=== PATIENT | female | born 1995 | race Caucasian/White ===

== ENCOUNTER 2021-01-25 14:42 | Emergency (ER) | payer OTHER, SELFPAY ==
--- NOTE | ~2021-01-25 | US_ITS ---
EXAMINATION: US VENOUS ULTRASOUND WITH DOPPLER LOWER EXTREMITY, RIGHT CLINICAL INFORMATION: Right lower extremity pain COMPARISON: None TECHNIQUE: Ultrasound of the deep veins is performed from the hip to the calf with compression sonography and color and pulse Doppler assessment. Spectral analysis with color-flow imaging is performed. FINDINGS: There is normal venous compression and respiratory variation and augmented flow. The visualized common femoral vein, superficial femoral vein, profunda femoral vein, popliteal vein, and the trifurcation region shows no evidence of deep venous thrombosis. There is no significant popliteal fossa cyst. If the patient's symptoms persist, followup ultrasound in 5 days 7 days might be of value to exclude proximal propagation from a non-visualized calf vein. US/US venous duplex LE RT IMPRESSION: No DVT demonstrated in the right lower extremity.
[2021-01-25 15:33] VITALS: BP 134/94; PULSE 122; RESP 18; TEMP 36.9; O2SAT 97; BMI 55.9
[2021-01-25 17:32] VITALS: BP 150/95; PULSE 128; RESP 18; TEMP 36.5; O2SAT 99
[2021-01-25] MEDS: Acetaminophen 325 MG TABLET 650 MG PO (19:14)
--- NOTE | 2021-01-25 20:00 | ED_ITS ---
HPI - Extremity Problem General Chief complaint: Extremity Problem Stated complaint: leg pain Time Seen by Provider: 01/25/21 17:40 Source: patient Mode of arrival: ambulatory Limitations: no limitations History of Present Illness HPI Narrative: States she has been inactive for the past several weeks to a month started being more active recently feeling pain in the right calf called primary care doctor advised to go to emergency room for rule out DVT. She otherwise denies any leg swelling states she is anxious when she heard this should cover possible DVT. She otherwise denies any rash or swelling. She is o n control. She does have history of morbid obesity. MD Complaint: extremity pain Pain Consistency: constant Location: right Related Data Allergies Allergy/AdvReac Type Severity Reaction Status Date / Time No Known Allergies Allergy Unverified 01/16/20 16:29 [No Known Allergies*] Review of Systems Review of Systems: Constitutional: No Weight loss, No Fever, No Chills, No Night Sweats, No Fatigue, No Malaise ENT/Mouth: No Hearing loss, No Ear Pain, No Nasal Congestion, No Sinus Pain, No Hoarseness, No sore throat, No Rhinorrhea, No Swallowing Difficulty Eyes: No Eye Pain, No Swelling, No Redness, No Foreign Body, No Discharge, No Vision Changes Cardiovascular: No Chest Pain, No SOB, No Dyspnea on Exertion, No Orthopnea, No Edema, No Palpitations Respiratory: No Cough, No Sputum, No Wheezing, No Smoke Exposure, No Dyspnea Gastrointestinal: No Nausea, No Vomiting, No Diarrhea, No Constipation, No abdominal Pain, No Hematochezia, No Melena Genitourinary: no irregular bleeding, No Dysuria, No Urinary Frequency, No Hematuria, No Urinary Incontinence, No Urgency, No Flank Pain, No Urinary Flow Changes, No Hesitancy Musculoskeletal: No joint pain, No Myalgias, No Joint Swelling Skin: No Skin Lesions, No rash Neuro: No Weakness, No Numbness, No Paresthesias, No Loss of Consciousness, No Dizziness, No Headache Psych: No Anxiety/Panic, No Depression, No SI/HI/AH/VH, No Social Issues, Heme/Lymph: No Bruising, No Bleeding,No Lymphadenopathy Endocrine: No Polyuria, No Polydipsia, No Temperature Intolerance Yes all other systems are reviewed and are negative [facility] Social History Social History Advance Directives: No Advance Directives Information Provided: No Patient : No Physical Exam Vital Signs: Vital Signs: Last Vital Signs Temp 97.7 F 01/25/21 17:32 Pulse 128 H 01/25/21 17:32 Resp 18 01/25/21 17:32 BP 150/95 H 01/25/21 17:32 Pulse Ox 99 01/25/21 17:32 Body Mass Index 55.9 Const: General: cooperative and healthy appearing; No acute distress or intoxicated appearing Nutritional Appearance: average body habitus Orientation/consciousness: patient oriented x3 HENMT: Head: Yes normal to inspection Ears: hearing grossly normal bilaterally Eyes: General: appearance normal, both eyes and all related structures Visual Sanders: normal visual sanders by confrontation Neck: Neck: Yes normal visual inspection, No positive Brudzinski's sign, No positive Kernig's sign and No tender Thyroid: Thyroid normal Chest: Chest palpation & inspection: normal inspection of the chest Resp: Effort & Inspection: normal respiratory effort Cardio: Jugular venous distension: no JVD GI: Inspection: Yes normal to inspection Percussion: Yes normal to percussion Auscultation: normal bowel sounds : General: Yes no CVA tenderness Back/Spine/Pelvis: Back: no CVA tenderness Skin: General skin exam: no rashes or lesions noted Neuro: General: patient oriented x3 Extrem: General: Yes normal to inspection Right upper extremity: normal to inspection and full ROM Left upper extremity: normal to inspection Right lower extremity: normal to inspection and no joint enlargement Left lower extremity: normal to inspection and no joint enlargement Course Course Course Narrative: Slice of motion pain to the mid calf of the right leg only with certain movements otherwise Achilles intact, negative Homans however she does have history of obesity and is on control thus venous ultrasound was done rule out DVT this was negative. Neurovascular intact. No other signs of injury. Discharge Plan Discharge Clinical Impression: Leg strain Patient Disposition: Home, Self-Care Instructions: Leg Pain (ED) Referrals: Latonia Contreras MD [Primary Care Provider] - 1 week Discharge Date/Time: 01/25/21 20:05
== END 2021-01-25 20:05 | disposition home or self-care (01) ==
PROVIDERS: Emergency Provider Emergency Medicine; PCP Internal Medicine
DX: S86.911A Strain of unspecified muscle(s) and tendon(s) at lower leg level, right leg, initial encounter (principal); M79.661 Pain in right lower leg; R60.0 Localized edema; X58.XXXA Exposure to other specified factors, initial encounter; Y93.9 Activity, unspecified; Y92.9 Unspecified place or not applicable; Y99.9 Unspecified external cause status
CPT/HCPCS: 93971; 99284

== ENCOUNTER 2021-09-15 20:49 | Emergency (ER) | payer OTHER, SELFPAY ==
[2021-09-15 20:53] VITALS: BP 137/98; PULSE 110; RESP 18; TEMP 36.4; O2SAT 99; BMI 46.0
== END 2021-09-15 22:54 | disposition left against medical advice (07) ==
PROVIDERS: Emergency Provider Emergency Medicine
DX: R10.9 Unspecified abdominal pain (principal)
CPT/HCPCS: 99281

== ENCOUNTER 2021-09-20 09:39 | Outpatient (REF) | payer OTHER, SELFPAY ==
--- NOTE | ~2021-09-20 | US_ITS ---
EXAMINATION: US ABDOMEN COMPLETE CLINICAL INFORMATION: Right upper quadrant pain. COMPARISON: None TECHNIQUE: Real-time imaging of the abdominal viscera. FINDINGS: PANCREAS: Normal. ABDOMINAL AORTA: The proximal, mid, and distal segments are normal in caliber. INFERIOR VENA CAVA: Visualized portions are normal. LIVER: The liver is normal in size. The liver contour is normal. Parenchymal echogenicity is increased and heterogeneous. No focal hepatic lesion. There is no intrahepatic biliary duct dilatation seen. GALLBLADDER: Normal. The gallbladder is physiologically distended without evidence of stones, sludge, polyps, wall thickening or pericholecystic fluid. COMMON BILE DUCT: Normal in caliber measuring 0.24 cm in diameter. RIGHT KIDNEY: Normal. No hydronephrosis. No renal calculi or focal parenchymal lesions. The kidney measures 10.6 cm in maximum dimension. LEFT KIDNEY: Normal. No hydronephrosis. No renal calculi or focal parenchymal lesions. The kidney measures 11.2 cm in maximum dimension. SPLEEN: Normal. The spleen measures 11.5 cm in maximum dimension. FREE FLUID: None. US/US abdomen complete IMPRESSION: Heterogeneous echogenic liver without any focal lesions.. Rest of the abdominal ultrasound is unremarkable.
== END 2021-09-20 09:40 | disposition home or self-care (01) ==
LOC: HO.US 09:39
PROVIDERS: Visit Provider Internal Medicine
DX: R10.11 Right upper quadrant pain (principal)
CPT/HCPCS: 76700

== ENCOUNTER 2022-03-16 16:32 | Emergency (ER) | payer OTHER, SELFPAY ==
--- NOTE | ~2022-03-16 | XR_ITS ---
EXAMINATION: XR CHEST CLINICAL INFORMATION: Chest pain COMPARISON: Chest x-ray 09/11/2006 TECHNIQUE: Frontal view of the chest was obtained. FINDINGS: The lungs are clear. No airspace consolidation, pleural effusion, or pneumothorax. The cardiomediastinal silhouette is within normal limits. No acute osseous injury. XR/XR chest 1V IMPRESSION: No acute pulmonary process.
[2022-03-16 16:36] VITALS: BP 144/98; PULSE 107; RESP 18; TEMP 36.6; O2SAT 109; BMI 53.5
--- NOTE | 2022-03-16 16:42 | ECG_ITS ---
Test Reason : CHEST PAIN Blood Pressure : / mmHG Vent. Rate : 112 BPM Atrial Rate : 112 BPM P-R Int : 148 ms QRS Dur : 070 ms QT Int : 342 ms P-R-T Axes : 048 045 036 degrees QTc Int : 466 ms Sinus tachycardia Otherwise normal ECG No previous ECGs available Referred By: Pravin Uriarte Electronically Signed By:JOEY KENNEDY MD
--- NOTE | 2022-03-16 16:44 | ED.ANXIETY ---
HPI - Anxiety General Chief Complaint: Anxiety <Pravin Uriarte MD - Last Filed: 03/16/22 16:45> Stated Complaint: Chest Pain <Pravin Uriarte MD - Last Filed: 03/16/22 16:45> Time Seen by Provider: 03/16/22 16:51 <Pravin Uriarte MD - Last Filed: 03/16/22 16:45> Source: patient <TAMMI Luque - Last Filed: 03/16/22 21:09> Mode of arrival: ambulatory <TAMMI Luque - Last Filed: 03/16/22 21:09> Limitations: no limitations <TAMMI Luque - Last Filed: 03/16/22 21:09> History of Present Illness HPI narrative: 26 yold female with pmh of anxiety, psoriasis, presents to the ED for 2 weeks of chest chest pain. patient states chest pain started once her boyfriend told her he was leaving to go away on vacation. She states also financial stressors at home. patient denies any leg swelling, calf pain, fever, chills, pleurisy, recent long travel, or recent surgery. <TAMMI Luque - Last Filed: 03/16/22 21:09> Related Data Home Medications: Previous Rx's Medication Instructions Recorded cephalexin 500 mg tablet 500 mg PO QID 7 days #28 tabs 03/16/22 <Pravin Uriarte MD - Last Filed: 03/16/22 16:45> Allergies/Adverse Reactions: Allergies Allergy/AdvReac Type Severity Reaction Status Date / Time No Known Allergies Allergy Unverified 01/16/20 16:29 [No Known Allergies*] <Pravin Uriarte MD - Last Filed: 03/16/22 16:45> Review of Systems Review of Systems: CHest pain, palpitations, anxiety <TAMMI Luque - Last Filed: 03/16/22 21:09> Yes all other systems are reviewed and are negative <TAMMI Luque - Last Filed: 03/16/22 21:09> PMFSH Social History Social History: Social History Advance Directives: No Advance Directives Information Provided: No <Pravin Uriarte MD - Last Filed: 03/16/22 16:45> Physical Exam Vital Signs: Vital Signs: Last Vital Signs Temp 97.8 F 03/16/22 16:36 Pulse 107 H 03/16/22 16:36 Resp 18 03/16/22 16:36 BP 144/98 H 03/16/22 16:36 Pulse Ox 109 H 03/16/22 16:36 O2 Del Method 03/16/22 16:36 BMI result Body Mass Index 53.5 <Pravin Uriarte MD - Last Filed: 03/16/22 16:45> Vital Signs: Last Vital Signs Temp 97.8 F 03/16/22 16:36 Pulse 107 H 03/16/22 16:36 Resp 18 03/16/22 16:36 BP 144/98 H 03/16/22 16:36 Pulse Ox 109 H 03/16/22 16:36 O2 Del Method 03/16/22 16:36 BMI result Body Mass Index 53.5 <TAMMI Luque - Last Filed: 03/16/22 21:09> Const: General: cooperative, healthy appearing, comfortable, no acute distress, well developed, alert, awake and Physically active <TAMMI Luque - Last Filed: 03/16/22 21:09> Orientation/consciousness: oriented to place, oriented to time and patient oriented x3 <TAMMI Luque - Last Filed: 03/16/22 21:09> HEENT: Head: Yes normal to inspection, Yes No palpable skull fracture present, Yes normocephalic, Yes atraumatic and No abrasion <TAMMI Luque - Last Filed: 03/16/22 21:09> Eyes: General: appearance normal, both eyes and all related structures <TAMMI Luque - Last Filed: 03/16/22 21:09> Neck: Neck: Yes normal visual inspection, Yes full ROM, Yes no lymphadenopathy, Yes no meningeal signs, Yes trachea midline, Yes supple, No anterior neck swelling and No tender <TAMMI Luque Last Filed: 03/16/22 21:09> Chest: Chest palpation & inspection: normal inspection of the chest and normal palpation of entire chest wall <TAMMI Luque Last Filed: 03/16/22 21:09> Resp: Effort & Inspection: normal respiratory effort and able to speak in complete sentences <TAMMI Luque Last Filed: 03/16/22 21:09> Cardio: Jugular venous distension: no JVD <TAMMI Luque Last Filed: 03/16/22 21:09> Heart sounds: S1 normal heart sound present and S2 normal heart sound present <TAMMI Luque Last Filed: 03/16/22 21:09> GI: Inspection: Yes normal to inspection and No abdominal wall ecchymosis <TAMMI Luque Last Filed: 03/16/22 21:09> Palpation (GI): Soft to palpation, not firm, nontender, no guarding and not rigid <TAMMI Luque Last Filed: 03/16/22 21:09> : General: No CVA tenderness and Yes no CVA tenderness <TAMMI Luque Last Filed: 03/16/22 21:09> Back/Spine/Pelvis: Back: no CVA tenderness, No CVA tenderness and No back tenderness <TAMMI Luque Last Filed: 03/16/22 21:09> Skin: Other: Psoraisis on skin <TAMMI Luque Last Filed: 03/16/22 21:09> Neuro: Other: negative for any neuro deficits. <TAMMI Luque Last Filed: 03/16/22 21:09> General: oriented to place, oriented to time, patient oriented x3, gait normal, tone normal, moves all extremities, Normal light touch and pain sensation, no meningeal signs, no focal motor deficits and CN's II-XI intact bilaterally <TAMMI Luque Last Filed: 03/16/22 21:09> Extrem: Other: Bilateral lower extremities negative for swelling, pitting edema, or calf tenderness <TAMMI Luque Last Filed: 03/16/22 21:09> General: Yes normal to inspection and Yes full ROM <TAMMI Luque Last Filed: 03/16/22 21:09> Psych: Appearance: grossly normal, well kempt and not disheveled <TAMMI Luque Last Filed: 03/16/22 21:09> Course Course Course Narrative: Provider in triage ordred labs and EKG. will follow. patient is well-appearing. Patient appears anxious <TAMMI Luque - Last Filed: 03/16/22 21:09> Reevaluation(s) Reevaluation #1: 26-year-old female history of anxiety presented with chest pain for the past 3 days, patient's history of severe anxiety and depression no SI or HI, chest pain is localized to the mid chest with no radiation described as constant for 3 days dull aching pain, no SOB, no relieving factor, no aggravating factor. No recent travel, no lower extremity swelling or tenderness, no history of PE or DVT. <Pravin Uriarte MD - Last Filed: 03/16/22 16:45> Time: 16:44 <Pravin Uriarte MD - Last Filed: 03/16/22 16:45> Reevaluation #2: Patient well appearing and stable during ED visit. EKG sinus tach. Troponin negative. TSH negative. D-dimer negative. Perc score 2. Chest x-ray negative pneumonia. Heart Score zero. Patient has good follow-up with therapist for her anxiety. Most likely atypical chest pain versus anxiety. UA shows UTI <TAMMI Luque - Last Filed: 03/16/22 21:09> Time: 18:23 <TAMMI Luque - Last Filed: 03/16/22 21:09> MDM - Anxiety MDM Narrative Medical decision making narrative: Atypical chest <TAMMI Luque - Last Filed: 03/16/22 21:09> Lab Data Result diagrams: : 03/16/22 17:23 03/16/22 17:23 <Pravin Uriarte MD - Last Filed: 03/16/22 16:45> Labs: Lab Results 03/16/22 03/16/22 03/16/22 Range/Units 17:23 17:23 17:23 WBC 7.4 (4.8-10.8) X10*3/uL RBC 5.34 (4.20-5.50) X10*6/uL Hgb 15.1 (12.0-16.0) g/dl Hct 44.0 (37.0-47.0) % MCV 82.4 (80.0-98.0) fL MCH 28.3 (27.0-33.0) pg MCHC 34.3 (31.0-35.0) g/dl RDW 12.3 (11.0-16.0) % Plt Count 276 (160-400) X10*3/uL MPV 10.5 (9.4-12.3) fL Immature Gran % (Auto) 0.3 (0.0-0.4) % Neut % (Auto) 67.4 (45-73) % Lymph % (Auto) 26.0 (20-40) % [place] % (Auto) 5.0 (2-11) % Eos % (Auto) 0.8 (0-4) % Baso % (Auto) 0.5 (0-2) % Lymph # (Auto) 1.9 (1.2-4.9) X10*3/uL [place] # (Auto) 0.4 (0.1-1.2) X10*3/uL Eos # (Auto) 0.1 (0.0-0.4) X10*3/uL Baso # (Auto) 0.0 (0.0-0.2) X10*3/uL Abs Immat Gran (auto) 0.02 (0.00-0.03) X10*3/uL Absolute Neuts (auto) 5.0 (2.0-8.3) x10*3/uL Absolute Nucleated RBC 0.000 (0.0-0.012) X10*3/uL Nucleated RBC % (auto) 0.0 (0.0-0.2) /100WBC PT (10.0-13.1) SEC INR (0.9-1.1) APTT (26.0-36.4) SEC D-Dimer High Sensitivty 178 NG/ML Sodium 139 (135-145) mmol/L Potassium 3.8 (3.3-5.1) mmol/L Chloride 104 (96-108) mmol/L Carbon Dioxide 23 (22-29) mmol/L Anion Gap 16 (12-20) BUN 12 (9-16) mg/dL Creatinine 0.79 (0.5-1.4) mg/dL Estim Creat Clear Calc 127.2 Estimated GFR > 60 Random Glucose 90 (60-115) mg/dL Calcium 9.4 (8.4-10.2) mg/dL Total Bilirubin 0.5 (0.0-1.0) mg/dL Direct Bilirubin 0.2 (0.0-0.5) mg/dL AST 22 (5-31) U/L ALT 26 (0-31) U/L Alkaline Phosphatase 80 (39-117) U/L Troponin I High Sens (<3.5-17.0) ng/L Total Protein 7.8 (6.5-8.0) g/dL Albumin 4.4 (3.5-5.0) g/dL Lipase 31 (8-78) U/L TSH (0.32-4.0) uIU/mL Urine Color Urine Appearance Urine pH (5.0-9.0) Ur Specific [place] (1.005-1.025) Urine Protein (Neg-Trace) mg/dL Urine Glucose (UA) (Negative) mg/dL Urine Ketones (Negative) mg/dL Urine Blood (Negative) Urine Nitrite (Negative) Ur Leukocyte Esterase (Negative) Urine RBC (0-2) /HPF Urine WBC (0-5) /HPF Ur Squamous Epith Cells (0-2) /HPF Urine Bacteria (None Seen) Hyaline Casts (0-2) /LPF Urine Test (NEGATIVE) 03/16/22 03/16/22 03/16/22 Range/Units 17:23 17:23 17:23 WBC (4.8-10.8) X10*3/uL RBC (4.20-5.50) X10*6/uL Hgb (12.0-16.0) g/dl Hct (37.0-47.0) % MCV (80.0-98.0) fL MCH (27.0-33.0) pg MCHC (31.0-35.0) g/dl RDW (11.0-16.0) % Plt Count (160-400) X10*3/uL MPV (9.4-12.3) fL Immature Gran % (Auto) (0.0-0.4) % Neut % (Auto) (45-73) % Lymph % (Auto) (20-40) % [place] % (Auto) (2-11) % Eos % (Auto) (0-4) % Baso % (Auto) (0-2) % Lymph # (Auto) (1.2-4.9) X10*3/uL [place] # (Auto) (0.1-1.2) X10*3/uL Eos # (Auto) (0.0-0.4) X10*3/uL Baso # (Auto) (0.0-0.2) X10*3/uL Abs Immat Gran (auto) (0.00-0.03) X10*3/uL Absolute Neuts (auto) (2.0-8.3) x10*3/uL Absolute Nucleated RBC (0.0-0.012) X10*3/uL Nucleated RBC % (auto) (0.0-0.2) /100WBC PT 11.9 (10.0-13.1) SEC INR 1.0 (0.9-1.1) APTT 33.2 (26.0-36.4) SEC D-Dimer High Sensitivty NG/ML Sodium (135-145) mmol/L Potassium (3.3-5.1) mmol/L Chloride (96-108) mmol/L Carbon Dioxide (22-29) mmol/L Anion Gap (12-20) BUN (9-16) mg/dL Creatinine (0.5-1.4) mg/dL Estim Creat Clear Calc Estimated GFR Random Glucose (60-115) mg/dL Calcium (8.4-10.2) mg/dL Total Bilirubin (0.0-1.0) mg/dL Direct Bilirubin (0.0-0.5) mg/dL AST (5-31) U/L ALT (0-31) U/L Alkaline Phosphatase (39-117) U/L Troponin I High Sens < 3.5 (<3.5-17.0) ng/L Total Protein (6.5-8.0) g/dL Albumin (3.5-5.0) g/dL Lipase (8-78) U/L TSH (0.32-4.0) uIU/mL Urine Color Yellow Urine Appearance Clear Urine pH 5.5 (5.0-9.0) Ur Specific [place] 1.020 (1.005-1.025) Urine Protein Negative (Neg-Trace) mg/dL Urine Glucose (UA) Negative (Negative) mg/dL Urine Ketones Trace (Negative) mg/dL Urine Blood Trace H (Negative) Urine Nitrite Negative (Negative) Ur Leukocyte Esterase Moderate (2+) H (Negative) Urine RBC 0-2 (0-2) /HPF Urine WBC 11-20 H (0-5) /HPF Ur Squamous Epith Cells 6-10 (0-2) /HPF Urine Bacteria Trace (None Seen) Hyaline Casts 0-2 (0-2) /LPF Urine Test (NEGATIVE) 03/16/22 03/16/22 Range/Units 17:23 17:23 WBC (4.8-10.8) X10*3/uL RBC (4.20-5.50) X10*6/uL Hgb (12.0-16.0) g/dl Hct (37.0-47.0) % MCV (80.0-98.0) fL MCH (27.0-33.0) pg MCHC (31.0-35.0) g/dl RDW (11.0-16.0) % Plt Count (160-400) X10*3/uL MPV (9.4-12.3) fL Immature Gran % (Auto) (0.0-0.4) % Neut % (Auto) (45-73) % Lymph % (Auto) (20-40) % [place] % (Auto) (2-11) % Eos % (Auto) (0-4) % Baso % (Auto) (0-2) % Lymph # (Auto) (1.2-4.9) X10*3/uL [place] # (Auto) (0.1-1.2) X10*3/uL Eos # (Auto) (0.0-0.4) X10*3/uL Baso # (Auto) (0.0-0.2) X10*3/uL Abs Immat Gran (auto) (0.00-0.03) X10*3/uL Absolute Neuts (auto) (2.0-8.3) x10*3/uL Absolute Nucleated RBC (0.0-0.012) X10*3/uL Nucleated RBC % (auto) (0.0-0.2) /100WBC PT (10.0-13.1) SEC INR (0.9-1.1) APTT (26.0-36.4) SEC D-Dimer High Sensitivty NG/ML Sodium (135-145) mmol/L Potassium (3.3-5.1) mmol/L Chloride (96-108) mmol/L Carbon Dioxide (22-29) mmol/L Anion Gap (12-20) BUN (9-16) mg/dL Creatinine (0.5-1.4) mg/dL Estim Creat Clear Calc Estimated GFR Random Glucose (60-115) mg/dL Calcium (8.4-10.2) mg/dL Total Bilirubin (0.0-1.0) mg/dL Direct Bilirubin (0.0-0.5) mg/dL AST (5-31) U/L ALT (0-31) U/L Alkaline Phosphatase (39-117) U/L Troponin I High Sens (<3.5-17.0) ng/L Total Protein (6.5-8.0) g/dL Albumin (3.5-5.0) g/dL Lipase (8-78) U/L TSH 2.43 (0.32-4.0) uIU/mL Urine Color Urine Appearance Urine pH (5.0-9.0) Ur Specific [place] (1.005-1.025) Urine Protein (Neg-Trace) mg/dL Urine Glucose (UA) (Negative) mg/dL Urine Ketones (Negative) mg/dL Urine Blood (Negative) Urine Nitrite (Negative) Ur Leukocyte Esterase (Negative) Urine RBC (0-2) /HPF Urine WBC (0-5) /HPF Ur Squamous Epith Cells (0-2) /HPF Urine Bacteria (None Seen) Hyaline Casts (0-2) /LPF Urine Test NEGATIVE (NEGATIVE) <Pravin Uriarte MD - Last Filed: 03/16/22 16:45> Lab Results 03/16/22 03/16/22 03/16/22 Range/Units 17:23 17:23 17:23 WBC 7.4 (4.8-10.8) X10*3/uL RBC 5.34 (4.20-5.50) X10*6/uL Hgb 15.1 (12.0-16.0) g/dl Hct 44.0 (37.0-47.0) % MCV 82.4 (80.0-98.0) fL MCH 28.3 (27.0-33.0) pg MCHC 34.3 (31.0-35.0) g/dl RDW 12.3 (11.0-16.0) % Plt Count 276 (160-400) X10*3/uL MPV 10.5 (9.4-12.3) fL Immature Gran % (Auto) 0.3 (0.0-0.4) % Neut % (Auto) 67.4 (45-73) % Lymph % (Auto) 26.0 (20-40) % [place] % (Auto) 5.0 (2-11) % Eos % (Auto) 0.8 (0-4) % Baso % (Auto) 0.5 (0-2) % Lymph # (Auto) 1.9 (1.2-4.9) X10*3/uL [place] # (Auto) 0.4 (0.1-1.2) X10*3/uL Eos # (Auto) 0.1 (0.0-0.4) X10*3/uL Baso # (Auto) 0.0 (0.0-0.2) X10*3/uL Abs Immat Gran (auto) 0.02 (0.00-0.03) X10*3/uL Absolute Neuts (auto) 5.0 (2.0-8.3) x10*3/uL Absolute Nucleated RBC 0.000 (0.0-0.012) X10*3/uL Nucleated RBC % (auto) 0.0 (0.0-0.2) /100WBC PT (10.0-13.1) SEC INR (0.9-1.1) APTT (26.0-36.4) SEC D-Dimer High Sensitivty 178 NG/ML Sodium 139 (135-145) mmol/L Potassium 3.8 (3.3-5.1) mmol/L Chloride 104 (96-108) mmol/L Carbon Dioxide 23 (22-29) mmol/L Anion Gap 16 (12-20) BUN 12 (9-16) mg/dL Creatinine 0.79 (0.5-1.4) mg/dL Estim Creat Clear Calc 127.2 Estimated GFR > 60 Random Glucose 90 (60-115) mg/dL Calcium 9.4 (8.4-10.2) mg/dL Total Bilirubin 0.5 (0.0-1.0) mg/dL Direct Bilirubin 0.2 (0.0-0.5) mg/dL AST 22 (5-31) U/L ALT 26 (0-31) U/L Alkaline Phosphatase 80 (39-117) U/L Troponin I High Sens (<3.5-17.0) ng/L Total Protein 7.8 (6.5-8.0) g/dL Albumin 4.4 (3.5-5.0) g/dL Lipase 31 (8-78) U/L TSH (0.32-4.0) uIU/mL Urine Color Urine Appearance Urine pH (5.0-9.0) Ur Specific [place] (1.005-1.025) Urine Protein (Neg-Trace) mg/dL Urine Glucose (UA) (Negative) mg/dL Urine Ketones (Negative) mg/dL Urine Blood (Negative) Urine Nitrite (Negative) Ur Leukocyte Esterase (Negative) Urine RBC (0-2) /HPF Urine WBC (0-5) /HPF Ur Squamous Epith Cells (0-2) /HPF Urine Bacteria (None Seen) Hyaline Casts (0-2) /LPF Urine Test (NEGATIVE) 03/16/22 03/16/22 03/16/22 Range/Units 17:23 17:23 17:23 WBC (4.8-10.8) X10*3/uL RBC (4.20-5.50) X10*6/uL Hgb (12.0-16.0) g/dl Hct (37.0-47.0) % MCV (80.0-98.0) fL MCH (27.0-33.0) pg MCHC (31.0-35.0) g/dl RDW (11.0-16.0) % Plt Count (160-400) X10*3/uL MPV (9.4-12.3) fL Immature Gran % (Auto) (0.0-0.4) % Neut % (Auto) (45-73) % Lymph % (Auto) (20-40) % [place] % (Auto) (2-11) % Eos % (Auto) (0-4) % Baso % (Auto) (0-2) % Lymph # (Auto) (1.2-4.9) X10*3/uL [place] # (Auto) (0.1-1.2) X10*3/uL Eos # (Auto) (0.0-0.4) X10*3/uL Baso # (Auto) (0.0-0.2) X10*3/uL Abs Immat Gran (auto) (0.00-0.03) X10*3/uL Absolute Neuts (auto) (2.0-8.3) x10*3/uL Absolute Nucleated RBC (0.0-0.012) X10*3/uL Nucleated RBC % (auto) (0.0-0.2) /100WBC PT 11.9 (10.0-13.1) SEC INR 1.0 (0.9-1.1) APTT 33.2 (26.0-36.4) SEC D-Dimer High Sensitivty NG/ML Sodium (135-145) mmol/L Potassium (3.3-5.1) mmol/L Chloride (96-108) mmol/L Carbon Dioxide (22-29) mmol/L Anion Gap (12-20) BUN (9-16) mg/dL Creatinine (0.5-1.4) mg/dL Estim Creat Clear Calc Estimated GFR Random Glucose (60-115) mg/dL Calcium (8.4-10.2) mg/dL Total Bilirubin (0.0-1.0) mg/dL Direct Bilirubin (0.0-0.5) mg/dL AST (5-31) U/L ALT (0-31) U/L Alkaline Phosphatase (39-117) U/L Troponin I High Sens < 3.5 (<3.5-17.0) ng/L Total Protein (6.5-8.0) g/dL Albumin (3.5-5.0) g/dL Lipase (8-78) U/L TSH (0.32-4.0) uIU/mL Urine Color Yellow Urine Appearance Clear Urine pH 5.5 (5.0-9.0) Ur Specific [place] 1.020 (1.005-1.025) Urine Protein Negative (Neg-Trace) mg/dL Urine Glucose (UA) Negative (Negative) mg/dL Urine Ketones Trace (Negative) mg/dL Urine Blood Trace H (Negative) Urine Nitrite Negative (Negative) Ur Leukocyte Esterase Moderate (2+) H (Negative) Urine RBC 0-2 (0-2) /HPF Urine WBC 11-20 H (0-5) /HPF Ur Squamous Epith Cells 6-10 (0-2) /HPF Urine Bacteria Trace (None Seen) Hyaline Casts 0-2 (0-2) /LPF Urine Test (NEGATIVE) 03/16/22 03/16/22 Range/Units 17:23 17:23 WBC (4.8-10.8) X10*3/uL RBC (4.20-5.50) X10*6/uL Hgb (12.0-16.0) g/dl Hct (37.0-47.0) % MCV (80.0-98.0) fL MCH (27.0-33.0) pg MCHC (31.0-35.0) g/dl RDW (11.0-16.0) % Plt Count (160-400) X10*3/uL MPV (9.4-12.3) fL Immature Gran % (Auto) (0.0-0.4) % Neut % (Auto) (45-73) % Lymph % (Auto) (20-40) % [place] % (Auto) (2-11) % Eos % (Auto) (0-4) % Baso % (Auto) (0-2) % Lymph # (Auto) (1.2-4.9) X10*3/uL [place] # (Auto) (0.1-1.2) X10*3/uL Eos # (Auto) (0.0-0.4) X10*3/uL Baso # (Auto) (0.0-0.2) X10*3/uL Abs Immat Gran (auto) (0.00-0.03) X10*3/uL Absolute Neuts (auto) (2.0-8.3) x10*3/uL Absolute Nucleated RBC (0.0-0.012) X10*3/uL Nucleated RBC % (auto) (0.0-0.2) /100WBC PT (10.0-13.1) SEC INR (0.9-1.1) APTT (26.0-36.4) SEC D-Dimer High Sensitivty NG/ML Sodium (135-145) mmol/L Potassium (3.3-5.1) mmol/L Chloride (96-108) mmol/L Carbon Dioxide (22-29) mmol/L Anion Gap (12-20) BUN (9-16) mg/dL Creatinine (0.5-1.4) mg/dL Estim Creat Clear Calc Estimated GFR Random Glucose (60-115) mg/dL Calcium (8.4-10.2) mg/dL Total Bilirubin (0.0-1.0) mg/dL Direct Bilirubin (0.0-0.5) mg/dL AST (5-31) U/L ALT (0-31) U/L Alkaline Phosphatase (39-117) U/L Troponin I High Sens (<3.5-17.0) ng/L Total Protein (6.5-8.0) g/dL Albumin (3.5-5.0) g/dL Lipase (8-78) U/L TSH 2.43 (0.32-4.0) uIU/mL Urine Color Urine Appearance Urine pH (5.0-9.0) Ur Specific [place] (1.005-1.025) Urine Protein (Neg-Trace) mg/dL Urine Glucose (UA) (Negative) mg/dL Urine Ketones (Negative) mg/dL Urine Blood (Negative) Urine Nitrite (Negative) Ur Leukocyte Esterase (Negative) Urine RBC (0-2) /HPF Urine WBC (0-5) /HPF Ur Squamous Epith Cells (0-2) /HPF Urine Bacteria (None Seen) Hyaline Casts (0-2) /LPF Urine Test NEGATIVE (NEGATIVE) <TAMMI Luque - Last Filed: 03/16/22 21:09> ECG Data Interpretation: Sinus tachycardia. Ventricular rate 112. Pr interval 148. QRS 70. QTC 466. Negative STEMI <TAMMI Luque - Last Filed: 03/16/22 21:09> Discharge Plan Discharge Clinical Impression: Atypical chest pain, UTI (urinary tract infection) <Pravin Uriarte MD - Last Filed: 03/16/22 16:45> Patient Disposition: Home, Self-Care <Pravin Uriarte MD - Last Filed: 03/16/22 16:45> Instructions: Chest Pain (DC), Urinary Tract Infection in Women (ED) <Pravin Uriarte MD - Last Filed: 03/16/22 16:45> Additional Instructions: Your blood work, EKG, and chest x-ray came back negative for signs of heart attack, risk of PE, or pneumonia. Please follow-up with your primary care provider. Return to the ED immediately for any worsening chest pain, leg swelling, calf pain, coughing up blood, fever, chills, chest pain on inspiration, flan pain, dysuria, hematuria, abdominal pain, nausea, vomitting or any other concerning symptoms. <Pravin Uriarte MD - Last Filed: 03/16/22 16:45> Prescriptions: New cephalexin 500 mg tablet 500 mg PO QID 7 Days Qty: 28 0RF <Pravin Uriarte MD - Last Filed: 03/16/22 16:45> Interventions: ED Discharge Assessment Last Done: 03/16/22 18:44 <Pravin Uriarte MD - Last Filed: 03/16/22 16:45> Discharge Date/Time: 03/16/22 18:45 <Pravin Uriarte MD - Last Filed: 03/16/22 16:45> Print Language: Czech <Pravin Uriarte MD - Last Filed: 03/16/22 16:45>
--- OUTSIDE RECORDS SUMMARY | 2022-03-16 17:07 | XMS_ITS | Continuity of Care Document ---
:1995 Author Organization [facility] Address [address] [place] [address]- Care Team Providers Name Role Phone Rufina Cross MD Primary Care Physician Encounter [facility] [place] Date(s): 06/24/21 - 07/24/21 [facility] [address] [place], [place] [address] Attending Physician: Val Godoy Admitting Physician: Val Godoy Referring Physician: AdmtrVal Allergies, Adverse Reactions, Alerts No Known Allergies Medications diclofenac 1% topical gel 1 application, Topically, 4 times a day, 2 g per dose, 8g max day, # 100 Gm, 0 Refills, Maintenance,06/24/21 18:01:00 EST, Gel, [id number], Partial fill upon patient request if the prescription is for a schedule II opioid drug., 151.8, cm, 02... Start Date: 06/24/21 Stop Date: 07/01/21 Status: Ordered
--- OUTSIDE RECORDS SUMMARY | 2022-03-16 17:07 | XMS_ITS | Continuity of Care Document ---
:1995 Author Organization [facility] Address [address] [place] [address]- Care Team Providers Name Role Phone Rufina Cross MD Primary Care Physician Encounter [facility] Date(s): 06/24/21 - 07/01/21 [facility] [address], [place] [address] Attending Physician: Stas Potts DO Referring Physician: Rufina Cross MD Allergies, Adverse Reactions, Alerts No Known Allergies Medications diclofenac 1% topical gel 1 application, Topically, 4 times a day, 2 g per dose, 8g max day, # 100 Gm, 0 Refills, Maintenance,06/24/21 18:01:00 EST, Gel, [id number], Partial fill upon patient request if the prescription is for a schedule II opioid drug., 151.8, cm, 02... Start Date: 06/24/21 Stop Date: 07/01/21 Status: Ordered Vital Signs Most recent to oldest [Reference Range]: 1 Height 151.8 cm (06/24/21 5:33 PM) Oxygen Saturation [94-100 %] 98 % (06/24/21 5:33 PM) Pulse Rate [55-90 bpm] 107 bpm *H* (06/24/21 5:33 PM) Blood Pressure [90-138/55-84 mm Hg] 141/67 mm Hg *H* (06/24/21 5:33 PM) Respiratory Rate [16-30 br/min] 16 br/min (06/24/21 5:33 PM) Temperature [96.8-100.4 DegF] 98.8 DegF (06/24/21 5:33 PM) Mode of Delivery (Oxygen) Room air (06/24/21 5:33 PM) Blood pressure sites Arm, right (06/24/21 5:33 PM) Temperature Route Temporal (06/24/21 5:33 PM)
[2022-03-16 17:29] LABS: MANUAL DIFF FLAG NO
[2022-03-16 17:31] LABS: Basophils Percent Auto 0.5 % (0-2); Eosinophils Absolute Auto 0.1 X10*3/uL (0.0-0.4); Eosinophils Percent Auto 0.8 % (0-4); Hemoglobin 15.1 g/dl (12.0-16.0); Imm Gran Abs Auto 0.02 X10*3/uL (0.00-0.03); Imm Gran Pct Auto 0.3 % (0.0-0.4); Lymphocytes Absolute Auto 1.9 X10*3/uL (1.2-4.9); Mean Corpuscular HGB Conc 34.3 g/dl (31.0-35.0); Mean Corpuscular Hemoglobin 28.3 pg (27.0-33.0); Mean Corpuscular Volume 82.4 fL (80.0-98.0); Mean Platelet Volume 10.5 fL (9.4-12.3); Monocytes Absolute Auto 0.4 X10*3/uL (0.1-1.2); Neutrophils Percent Auto 67.4 % (45-73); Platelet Count 276 X10*3/uL (160-400); Red Blood Count 5.34 X10*6/uL (4.20-5.50); Red Cell Distribution Width 12.3 % (11.0-16.0); White Blood Count 7.4 X10*3/uL (4.8-10.8)
[2022-03-16 17:32] LABS: Appearance Urine Clear; Color Urine Yellow; Glucose Urine UA Negative (Negative); Leukocyte Esterase Urine Moderate (2+) (Negative); Nitrite Urine Negative (Negative); PH 5.5 (5.0-9.0); UMIC TRIGGER UACC YES; Urine Blood Trace (Negative); Urine Ketones Trace mg/dL (Negative); Urine Protein Negative (Neg-Trace)
[2022-03-16 17:37] LABS: Bacteria Urine Trace (None Seen); Hyaline Casts Urine 0-2 /LPF (0-2); Prothrombin Time 11.9 SEC (10.0-13.1); RBC Urine 0-2 /HPF (0-2); UACC Culture Trigger YES
[2022-03-16 17:38] LABS: UPreg QC Valid YES; Urine Pregnancy NEGATIVE (NEGATIVE)
[2022-03-16 17:40] LABS: D Dimer High Sensitivity 178 NG/ML; Partial Thromboplastin Time 33.2 SEC (26.0-36.4)
[2022-03-16 17:49] LABS: Alanine Aminotransferase 26 U/L (0-31); Albumin Level 4.4 g/dL (3.5-5.0); Alkaline Phosphatase 80 U/L (39-117); Anion Gap 16 (12-20); Aspartate Amino Transferase 22 U/L (5-31); Bilirubin Direct 0.2 mg/dL (0.0-0.5); Bilirubin Total 0.5 mg/dL (0.0-1.0); Blood Urea Nitrogen 12 mg/dL (9-16); Calcium 9.4 mg/dL (8.4-10.2); Carbon Dioxide 23 mmol/L (22-29); Chloride 104 mmol/L (96-108); Creatinine Clr Calc Pharmacy 127.2; Estimated Glomerular Filt Rate > 60; Glucose Random 90 mg/dL (60-115); Lipase 31 U/L (8-78); Potassium 3.8 mmol/L (3.3-5.1); Sodium 139 mmol/L (135-145); Total Protein 7.8 g/dL (6.5-8.0)
[2022-03-16 17:57] LABS: Troponin-I High Sensitivity < 3.5 ng/L (<3.5-17.0)
[2022-03-16 18:08] LABS: TSH reflex Free T4 2.43 uIU/mL (0.32-4.0)
== END 2022-03-16 18:45 | disposition home or self-care (01) ==
PROVIDERS: Emergency Medicine; Physician Assistant; Emergency Provider Internal Medicine; PCP Internal Medicine
DX: R07.89 Other chest pain (principal); N39.0 Urinary tract infection, site not specified
CPT/HCPCS: 36415; 71045; 80048; 80076; 81001; 81025; 83690; 84443; 84484; 85025; 85379; 85610; 85730; 87086; 93005; 99283

== ENCOUNTER 2024-03-03 23:41 | Emergency (ER) | payer OTHER, SELFPAY ==
[2024-03-03 23:47] VITALS: BP 147/96; PULSE 101; RESP 18; TEMP 36.8; O2SAT 100; BMI 55.7
[2024-03-04 01:05] LABS: MANUAL DIFF FLAG NO
[2024-03-04 01:06] LABS: Basophils Percent Auto 0.2 % (0-2); Eosinophils Absolute Auto 0.2 X10*3/uL (0.0-0.4); Eosinophils Percent Auto 2.4 % (0-4); Hematocrit 40.9 % (37.0-47.0); Hemoglobin 14.7 g/dl (12.0-16.0); Imm Gran Abs Auto 0.03 X10*3/uL (0.00-0.03); Imm Gran Pct Auto 0.3 % (0.0-0.4); Lymphocytes Absolute Auto 2.6 X10*3/uL (1.2-4.9); Mean Corpuscular HGB Conc 35.9 g/dl (31.0-35.0); Mean Corpuscular Hemoglobin 30.2 pg (27.0-33.0); Mean Platelet Volume 9.8 fL (9.4-12.3); Monocytes Absolute Auto 0.6 X10*3/uL (0.1-1.2); Monocytes Percent Auto 6.4 % (2-11); Neutrophils Absolute Auto 6.1 x10*3/uL (2.0-8.3); Neutrophils Percent Auto 63.7 % (45-73); Platelet Count 337 X10*3/uL (160-400); Red Blood Count 4.87 X10*6/uL (4.20-5.50); Red Cell Distribution Width 12.8 % (11.0-16.0); White Blood Count 9.6 X10*3/uL (4.8-10.8)
--- NOTE | 2024-03-04 01:06 | ED.ABDPAIN ---
HPI - Abdominal Pain General Chief Complaint: Abdominal Pain Stated Complaint: stomach pain Time Seen by Provider: 03/04/24 01:06 Source: patient Limitations: no limitations History of Present Illness ED Provider: Ricarda Phillips PA-C HPI narrative: 48-year-old morbidly obese female presents with multiple complaints. Patient has been having pain over right mid abdomen, a wraps around the right flank to the right back. It is described as a burning sensation. She feels as if her skin is hypersensitive, even wearing a bra or her scrubs is extremely uncomfortable. Denies rash. 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 Denies nausea vomiting or postprandial symptoms. In addition, patient has had ongoing foul smelling urine, it is very obvious every time she urinates. Denies dysuria, hematuria, fever. Denies new vaginal discharge. Denies risk for STD. Patient states she has been seen at urgent Care in the past, she is told she always has a urinary tract infection. Related Data Previous Rx's ?Medication ?Instructions ?Recorded cephalexin 500 mg tablet 500 mg PO QID 7 days #28 tabs 03/16/22 metronidazole 500 mg tablet 500 mg PO BID #14 tabs 03/04/24 tramadol 50 mg tablet 50 mg PO Q6H PRN pain #12 tabs 03/04/24 valacyclovir 1 gram tablet 1,000 mg PO TID #21 tabs 03/04/24 Allergies Allergy/AdvReac Type Severity Reaction Status Date / Time No Known Allergies Allergy Verified 03/03/24 23:47 [No Known Allergies*] Review of Systems Review of Systems Yes all other systems are reviewed and are negative Constitutional: Denies fatigue and Denies fever(s) Cardiovascular: Denies chest pain and Denies dyspnea Respiratory: Denies dyspnea Gastrointestinal: Reports abdominal pain, Denies diarrhea, Denies nausea and Denies vomiting Genitourinary: Denies dysuria, Denies vaginal discharge, Denies vaginal odor and Denies vaginal pruritus Skin/Breast: Denies rash and Reports skin pain Endocrine: Denies fatigue PMFSH Past Medical History Attestation statement: The following information was validated with the patient. Social History Social History Alcohol intake: never Smoked in Last 30 Days: No Use of substances other than those prescribed or required for medical reasons: No Advance Directives: No Advance Directives Information Provided: Yes Do you have a plan to hurt others: No Plan Patient : No Physical Exam ED Vital Signs: Vital Signs - 24 hr 03/03/24 23:47 Temperature 98.3 F Pulse Rate 101 H Respiratory Rate 18 Blood Pressure 147/96 H Pulse Oximetry 100 Oxygen Delivery Method Room Air BMI result Body Mass Index 55.7 Const Other: Alert, well in appearance Orientation/consciousness: patient oriented x3 Resp Other: Nonlabored respiration Cardio Other: Normal peripheral perfusion GI Other: Abdomen is soft, nondistended, obese, no tenderness with deep palpation, no guarding. No rash noted over the abdomen /flank Back/Spine/Pelvis Other: No rash noted over the back Skin Other: Warm dry no rash Neuro General: patient oriented x3, no focal motor deficits and CN's II-XI intact bilaterally Psych Other: Calm cooperative Course Reevaluation(s) Reevaluation #1: Called the patient to let her know that her BV panel was positive Medical Decision Making Medical Decision Making MDM Narrative: 48-year-old morbidly obese female presents with multiple complaints. Patient has been having pain over right mid abdomen, a wraps around the right flank to the right back. It is described as a burning sensation. She feels as if her skin is hypersensitive, even wearing a bra or her scrubs is extremely uncomfortable. Denies rash. 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 Denies nausea vomiting or postprandial symptoms. In addition, patient has had ongoing foul smelling urine, it is very obvious every time she urinates. Denies dysuria, hematuria, fever. Denies new vaginal discharge. Denies risk for STD. Patient states she has been seen at urgent Care in the past, she is told she always has a urinary tract infection. Problem: Obesity History: Per patient I have considered the following differential diagnoses: Biliary colic, cholecystitis, gastritis, shingles, bacterial vaginosis, UTI, pyelonephritis Plan: In regard to the abdominal pain, given distribution, I did consider underlying biliary versus gastric etiology as cause for symptoms. However, she has no postprandial symptoms no active GI symptoms. The pain is superficial over the skin. I do believe she likely we will be developing shingles. In regard to her foul smelling urine, we will collect a urinalysis. Given she is always asymptomatic, she likely does not have a true urinary tract infection, she likely has a BV. We will obtain a swab. She does not require imaging Labs: No leukocytosis, not anemic, no electrolyte abnormality, not , BV panel pending, urine neg Viral panel negative Seventy the patient with the empiric therapy for shingles, valacyclovir and pain meds. Also giving her a script for suspect BV, I told her I would call her the following day to confirm results. Lab Data 03/04/24 01:00 03/04/24 01:00 Labs: Lab Results 03/04/24 03/04/24 03/04/24 Range/Units 01:00 01:35 01:58 WBC 9.6 (4.8-10.8) X10*3/uL RBC 4.87 (4.20-5.50) X10*6/uL Hgb 14.7 (12.0-16.0) g/dl Hct 40.9 (37.0-47.0) % MCV 84.0 (80.0-98.0) fL MCH 30.2 (27.0-33.0) pg MCHC 35.9 H (31.0-35.0) g/dl RDW 12.8 (11.0-16.0) % Plt Count 337 (160-400) X10*3/uL MPV 9.8 (9.4-12.3) fL Immature Gran % (Auto) 0.3 (0.0-0.4) % Neut % (Auto) 63.7 (45-73) % Lymph % (Auto) 27.0 (20-40) % [place] % (Auto) 6.4 (2-11) % Eos % (Auto) 2.4 (0-4) % Baso % (Auto) 0.2 (0-2) % Lymph # (Auto) 2.6 (1.2-4.9) X10*3/uL [place] # (Auto) 0.6 (0.1-1.2) X10*3/uL Eos # (Auto) 0.2 (0.0-0.4) X10*3/uL Baso # (Auto) 0.0 (0.0-0.2) X10*3/uL Abs Immat Gran (auto) 0.03 (0.00-0.03) X10*3/uL Absolute Neuts (auto) 6.1 (2.0-8.3) x10*3/uL Absolute Nucleated RBC 0.000 (0.0-0.012) X10*3/uL Nucleated RBC % (auto) 0.0 (0.0-0.2) /100WBC Sodium 140 (135-145) mmol/L Potassium 3.5 (3.3-5.1) mmol/L Chloride 105 (96-108) mmol/L Carbon Dioxide 23 (22-29) mmol/L Anion Gap 16 (12-20) BUN 9 (9-16) mg/dL Creatinine 0.79 (0.5-1.4) mg/dL Estim Creat Clear Calc 128.2 Estimated GFR > 60 Random Glucose 121 H (60-115) mg/dL Calcium 9.4 (8.4-10.2) mg/dL Total Bilirubin 0.5 (0.0-1.0) mg/dL AST 29 (5-31) U/L ALT 32 H (0-31) U/L Alkaline Phosphatase 77 (39-117) U/L Total Protein 7.2 (6.5-8.0) g/dL Albumin 4.1 (3.5-5.0) g/dL Lipase 45 (8-78) U/L Urine Color Yellow Urine Appearance Clear Urine pH 6.5 (5.0-9.0) Ur Specific [place] 1.020 (1.005-1.025) Urine Protein Negative (Neg-Trace) mg/dL Urine Glucose (UA) Negative (Negative) mg/dL Urine Ketones Trace (Negative) mg/dL Urine Blood Negative (Negative) Urine Nitrite Negative (Negative) Ur Leukocyte Esterase Negative (Negative) COVID-19 (ASHLEIGH) Negative (Negative) COVID-19 Clin Com See Note Influenza Type A (ALEJANDRINA) Negative (Negative) Influenza Type B (ALEJANDRINA) Negative (Negative) Influenza A & B Note See Note T. vaginalis (PCR) NOT DETECTED (Not Detect) Bact Vaginosis (PCR) POSITIVE A (Negative) C. krusei/glabrata (PCR) NOT DETECTED (Not Detect) Marie group (PCR) NOT DETECTED (Not Detect) Discharge Plan Discharge Clinical Impression: Herpes zoster Patient Disposition: Home, Self-Care Instructions: Shingles (ED) Additional Instructions: Given your symptoms, you are being treated for shingles. Be aware that you will likely develop the rash soon. See home care instructions. Take the valacyclovir as directed, use the tramadol as needed for pain. All of your labs were normal including your liver function tests. You do not have a urinary tract infection, the viral panel was negative as well, you were screened for influenza a and B, RSV and COVID. You are being screened for bacterial vaginosis, I am sending you with information to read about. You have been given a prescription called metronidazole, this will treat the infection. The tests would not result today, it will return tomorrow, I will call you to confirm results. Follow up with your primary care provider as needed. Prescriptions: New metronidazole 500 mg tablet 500 mg PO BID Qty: 14 0RF valacyclovir 1 gram tablet 1,000 mg PO TID Qty: 21 0RF tramadol 50 mg tablet 50 mg PO Q6H MDD 200 PRN (Reason: pain) Qty: 12 0RF No Action cephalexin 500 mg tablet 500 mg PO QID 7 Days Qty: 28 0RF Stand Alone Forms: Work/School Release Interventions: ED Discharge Assessment Last Done: 03/04/24 02:21 Discharge Date/Time: 03/04/24 02:30 Print Language: Czech
[2024-03-04 01:24] LABS: Alanine Aminotransferase 32 U/L (0-31); Albumin Level 4.1 g/dL (3.5-5.0); Alkaline Phosphatase 77 U/L (39-117); Anion Gap 16 (12-20); Aspartate Amino Transferase 29 U/L (5-31); Bilirubin Total 0.5 mg/dL (0.0-1.0); Blood Urea Nitrogen 9 mg/dL (9-16); Calcium 9.4 mg/dL (8.4-10.2); Carbon Dioxide 23 mmol/L (22-29); Chloride 105 mmol/L (96-108); Creatinine Clr Calc Pharmacy 128.2; Estimated Glomerular Filt Rate > 60; Glucose Random 121 mg/dL (60-115); Lipase 45 U/L (8-78); Potassium 3.5 mmol/L (3.3-5.1); Sodium 140 mmol/L (135-145); Total Protein 7.2 g/dL (6.5-8.0)
[2024-03-04 01:38] LABS: COVID-19 Test Negative (Negative); IDNOW Serial# 08D9AD1C; IDNOW Serial# 152EDE1D; Influenza A Negative (Negative); Influenza B2 Negative (Negative)
[2024-03-04 01:47] LABS: Appearance Urine Clear; Color Urine Yellow; Glucose Urine UA Negative (Negative); Leukocyte Esterase Urine Negative (Negative); Nitrite Urine Negative (Negative); PH 6.5 (5.0-9.0); Urine Blood Negative (Negative); Urine Ketones Trace mg/dL (Negative); Urine Protein Negative (Neg-Trace)
[2024-03-04 02:00] VITALS: BP 124/76; PULSE 87; RESP 16; TEMP 36.9; O2SAT 98
[2024-03-04 02:21] VITALS: BP 124/76; PULSE 87; RESP 16; TEMP 36.9; O2SAT 98
[2024-03-04 15:10] LABS: Bacterial Vaginosis PCR POSITIVE (Negative); Candida Group PCR NOT DETECTED (Not Detect); Candida glab krusei PCR NOT DETECTED (Not Detect); Trichomonas vaginalis PCR NOT DETECTED (Not Detect)
== END 2024-03-04 02:30 | disposition home or self-care (01) ==
PROVIDERS: Physician Assistant Medical; Emergency Provider Internal Medicine; PCP Internal Medicine
DX: B02.9 Zoster without complications (principal); R10.9 Unspecified abdominal pain; Z11.3 Encounter for screening for infections with a predominantly sexual mode of transmission
CPT/HCPCS: 0352U; 36415; 80053; 81003; 83690; 85025; 87502; 87635; 99283; 99284

== ENCOUNTER 2024-03-21 04:06 | Emergency (ER) | payer BC, OTHER, SELFPAY ==
[2024-03-21 04:16] VITALS: BP 116/82; PULSE 84; RESP 18; TEMP 36.8; O2SAT 98; BMI 56.6
[2024-03-21 04:32] LABS: Basophils Absolute Auto 0.1 X10*3/uL (0.0-0.2); Basophils Percent Auto 0.5 % (0-2); Eosinophils Absolute Auto 0.1 X10*3/uL (0.0-0.4); Eosinophils Percent Auto 1.4 % (0-4); Hematocrit 41.1 % (37.0-47.0); Hemoglobin 14.4 g/dl (12.0-16.0); Imm Gran Abs Auto 0.03 X10*3/uL (0.00-0.03); Imm Gran Pct Auto 0.3 % (0.0-0.4); Lymphocytes Percent Auto 30.3 % (20-40); MANUAL DIFF FLAG NO; Mean Corpuscular Hemoglobin 29.7 pg (27.0-33.0); Mean Corpuscular Volume 84.7 fL (80.0-98.0); Mean Platelet Volume 10.4 fL (9.4-12.3); Monocytes Absolute Auto 0.6 X10*3/uL (0.1-1.2); Monocytes Percent Auto 5.9 % (2-11); Neutrophils Percent Auto 61.6 % (45-73); Platelet Count 231 X10*3/uL (160-400); Red Blood Count 4.85 X10*6/uL (4.20-5.50); Red Cell Distribution Width 12.8 % (11.0-16.0); White Blood Count 9.7 X10*3/uL (4.8-10.8)
[2024-03-21 04:47] LABS: Alanine Aminotransferase 28 U/L (0-31); Alkaline Phosphatase 71 U/L (39-117); Anion Gap 13 (12-20); Aspartate Amino Transferase 23 U/L (5-31); Bilirubin Total 0.6 mg/dL (0.0-1.0); Blood Urea Nitrogen 11 mg/dL (9-16); Calcium 9.3 mg/dL (8.4-10.2); Carbon Dioxide 24 mmol/L (22-29); Chloride 105 mmol/L (96-108); Estimated Glomerular Filt Rate > 60; Glucose Random 123 mg/dL (60-115); Potassium 4.1 mmol/L (3.3-5.1); Sodium 138 mmol/L (135-145); Total Protein 7.1 g/dL (6.5-8.0)
--- NOTE | 2024-03-21 04:49 | PC.NURSE ---
pt ambulated from waiting room, a&ox4, vss. pt reports frontal headache x4 days with no relief from medications. pt reports constant dizziness, intermittent blurred vision and photosensitivity. pt reports nasal congestion. pt self medicated with ibuprofen 600mg 1 hour prior to arrival at ed and sumatriptin 6 hrs prior to ed arrival. neurological exam negative for deficits.
[2024-03-21 05:09] LABS: Influenza A PCR NEGATIVE (Negative); Influenza B PCR NEGATIVE (Negative); Resp Syncy Virus RNA Qual PCR NEGATIVE (Negative); SARS COV2 PCR INHOUSE NEGATIVE (Negative)
== END 2024-03-21 05:39 | disposition left against medical advice (07) ==
PROVIDERS: Emergency Provider Emergency Medicine Emergency Medical Services; PCP Internal Medicine
DX: R51.9 Headache, unspecified (principal); Z03.818 Encounter for observation for suspected exposure to other biological agents ruled out; Z79.899 Other long term (current) drug therapy
CPT/HCPCS: 0241U; 80053; 85025; 99281; 99284

== ENCOUNTER 2024-12-17 19:00 | Emergency (ER) | payer OTHER, SELFPAY ==
--- NOTE | ~2024-12-17 | CT_ITS ---
CLINICAL HISTORY: headache x5 days CT head without contrast Comparison: None provided Findings: No acute intracranial hemorrhage. No midline shift or hydrocephalus. No large arterial territorial infarction by CT. Metal artifacts noted, including left nasal piercing and metal of the mouth. Imaged paranasal sinuses and imaged mastoid air cells are well aerated. No acute skull fracture accounting for artifacts. IMPRESSION: 1. No acute intracranial abnormality by CT. This document has been electronically signed by: Delmar Jordan MD on 12/17/2024 21:22:19
[2024-12-17 19:08] VITALS: BP 147/75; PULSE 101; RESP 16; TEMP 36.1; O2SAT 98; BMI 53.7
--- NOTE | 2024-12-17 19:22 | ED.HA ---
HPI - Headache General Chief Complaint: Headache Stated Complaint: migraine 5 days, [place] teeth? dizzy Time Seen by Provider: 12/17/24 23:26 Source: patient Limitations: no limitations History of Present Illness ED Provider: Ricarda Rain PA-C HPI Narrative: 29-year-old female with a history of anxiety, migraine presents with migraine type headache x5 days. Pain spans from posterior neck up over occipital region, is constant. Unable to describe the nature of her discomfort. Associated phonophobia, photophobia and nausea. Denies head trauma or use of blood thinners. Denies recent cough or cold symptoms. The patient is under a great deal of stress at this time, and she also just finished her menstrual cycle. No fevers. Patient saw her primary care provider, she was prescribed naproxen, sumatriptan and cyclobenzaprine. Her headache has remained refractory. Related Data Previous Rx's ?Medication ?Instructions ?Recorded cephalexin 500 mg tablet 500 mg PO QID 7 days #28 tabs 03/16/22 metronidazole 500 mg tablet 500 mg PO BID #14 tabs 03/04/24 tramadol 50 mg tablet 50 mg PO Q6H PRN pain #12 tabs 03/04/24 valacyclovir 1 gram tablet 1,000 mg PO TID #21 tabs 03/04/24 Allergies Allergy/AdvReac Type Severity Reaction Status Date / Time No Known Allergies (No Known Allergy Verified 12/17/24 19:14 Allergies*) Review of Systems Review of Systems: Yes all other systems are reviewed and are negative Constitutional: Constitutional: Denies fatigue, Denies fever(s) and Reports headache(s) ENT: Denies dizziness, Reports headache(s) and Reports neck pain Cardiovascular: Cardiovascular: Denies chest pain and Denies dyspnea Respiratory: Respiratory: Denies cough and Denies dyspnea Gastrointestinal: Gastrointestinal: Denies abdominal pain, Reports nausea and Denies vomiting Musculoskeletal: Musculoskeletal: Reports neck pain Neurologic: Denies dizziness and Reports headache(s) Endocrine: Endocrine: Denies fatigue PMF Past Medical History Attestation statement: The following information was validated with the patient. Social History Social History Alcohol intake: never Advance Directives: No Advance Directives Information Provided: No Do you have a plan to hurt others: No Plan Physical Exam Vital Signs: Vital Signs: Last Vital Signs Temp 97.5 F 12/18/24 02:21 Pulse 99 12/18/24 02:21 Resp 20 12/18/24 02:21 BP 129/87 12/18/24 02:21 Pulse Ox 96 12/18/24 02:21 O2 Del Method Room Air 12/18/24 02:21 BMI result Body Mass Index 53.7 Const: Other: Alert, anxious, tearful Orientation/consciousness: patient oriented x3 Neck: Neck: Yes full ROM and Yes no meningeal signs Resp: Effort & Inspection: normal respiratory effort Cardio: Other: Normal peripheral perfusion Skin: Other: Warm dry no rash Neuro: General: patient oriented x3, gait normal, no meningeal signs, no focal motor deficits and CN's II-XI intact bilaterally Psych: Other: Anxious tearful yet cooperative Course Course Course Narrative: This is a Rapid Medical Examination (RME) performed by Lary Tan PA-C in triage. Full HPI, ROS, assessment and treatment plan per primary provider in the Main ED. Hx: 29 yo F here w/ migraine x5 days. Seen at PCP office yesterday, given naproxen, sumatriptan, Flexeril which he has been taking without relief. Also taking Tylenol at home. Last took this yesterday. Reports photophobia, phonophobia and nausea without vomiting. No head injury. Plan: ct head, basic labs/hcg. tylenol ordered in triage Reevaluation(s) Reevaluation #1: Symptoms resolved eager for discharge Medications Administered Discontinued Medications Generic Name Dose Route Start Last Admin Trade Name Mateo PRN Reason Stop Dose Admin Acetaminophen 975 mg 12/17/24 19:17 12/17/24 23:24 Acetaminophen 325 Mg Tablet PO 12/17/24 19:18 975 mg ONCE ONE Administration Dexamethasone Sodium Phosphate 10 mg 12/17/24 23:44 12/18/24 00:02 Dexamethasone Sod Phosphate 10 Mg/Ml Vial IVPUSH 12/17/24 23:45 10 mg ONCE ONE Administration Diazepam 2.5 mg 12/17/24 23:44 12/18/24 00:03 Diazepam 10 Mg/2 Ml Cartridge IVPUSH 12/17/24 23:45 2.5 mg STAT STA Administration Diphenhydramine HCl 25 mg 12/17/24 23:44 12/18/24 00:02 Diphenhydramine Hcl 50 Mg/Ml Vial IVPUSH 12/17/24 23:45 25 mg ONCE ONE Administration Sodium Chloride 1,000 mls @ 999 mls/hr 12/17/24 23:45 12/18/24 01:41 Ns IV 12/18/24 00:45 Infused .Q1H1M CATHERINE Infusion Ketorolac Tromethamine 15 mg 12/17/24 23:44 12/18/24 00:02 Ketorolac Tromethamine 15 Mg/Ml Vial IVPUSH 12/17/24 23:45 15 mg ONCE ONE Administration Prochlorperazine Edisylate 10 mg 12/17/24 23:44 12/18/24 00:02 Prochlorperazine Edisylate 10 Mg/2 Ml Vial IVPUSH 12/17/24 23:45 10 mg ONCE ONE Administration Medical Decision Making Medical Decision Making [facility] Narrative: 29-year-old female with a history of anxiety, migraine presents with migraine type headache x5 days. Pain spans from posterior neck up over occipital region, is constant. Unable to describe the nature of her discomfort. Associated phonophobia, photophobia and nausea. Denies head trauma or use of blood thinners. Denies recent cough or cold symptoms. The patient is under a great deal of stress at this time, and she also just finished her menstrual cycle. No fevers. Patient saw her primary care provider, she was prescribed naproxen, sumatriptan and cyclobenzaprine. Her headache has remained refractory. Problem: Anxiety and migraine History: Per patient I have considered the following differential diagnoses: Intracranial hemorrhage, meningitis, tension headache, migraine headache, VAD Plan: Patient here with a refractory migraine headache, we will give migraine cocktail. From triage a head CT was ordered there was no intracranial hemorrhage. Given associated posterior neck pain, this could be a tension type headache given her concurrent psychosocial stressors. I did consider meningitis, however there are no meningeal signs on exam. Thought about VAD, however there was no preceding heavy lifting mechanism, and the patient is neurologically intact. I have independently reviewed the following tests: Labs: Slight leukocytosis, not anemic, no electrolyte abnormality, not CT brain: Findings: No acute intracranial hemorrhage. No midline shift or hydrocephalus. No large arterial territorial infarction by CT. Metal artifacts noted, including left nasal piercing and metal of the mouth. Imaged paranasal sinuses and imaged mastoid air cells are well aerated. No acute skull fracture accounting for artifacts. IMPRESSION: 1. No acute intracranial abnormality by CT. Lab Data 12/17/24 19:24 12/17/24 19:24 Labs: Lab Results 12/17/24 12/17/24 Range/Units 19:24 23:42 WBC 12.1 H (4.8-10.8) X10*3/uL RBC 5.11 (4.20-5.50) X10*6/uL Hgb 14.9 (12.0-16.0) g/dl Hct 42.7 (37.0-47.0) % MCV 83.6 (80.0-98.0) fL MCH 29.2 (27.0-33.0) pg MCHC 34.9 (31.0-35.0) g/dl RDW 12.2 (11.0-16.0) % Plt Count 288 (160-400) X10*3/uL MPV 10.2 (9.4-12.3) fL Immature Gran % (Auto) 0.4 (0.0-0.4) % Neut % (Auto) 69.7 (45-73) % Lymph % (Auto) 23.1 (20-40) % [place] % (Auto) 5.6 (2-11) % Eos % (Auto) 0.9 (0-4) % Baso % (Auto) 0.3 (0-2) % Lymph # (Auto) 2.8 (1.2-4.9) X10*3/uL [place] # (Auto) 0.7 (0.1-1.2) X10*3/uL Eos # (Auto) 0.1 (0.0-0.4) X10*3/uL Baso # (Auto) 0.0 (0.0-0.2) X10*3/uL Abs Immat Gran (auto) 0.05 H (0.00-0.03) X10*3/uL Absolute Neuts (auto) 8.4 H (2.0-8.3) x10*3/uL Absolute Nucleated RBC 0.000 (0.0-0.012) X10*3/uL Nucleated RBC % (auto) 0.0 (0.0-0.2) /100WBC Sodium 140 (135-145) mmol/L Potassium 3.8 (3.3-5.1) mmol/L Chloride 105 (96-108) mmol/L Carbon Dioxide 24 (22-29) mmol/L Anion Gap 15 (12-20) BUN 11 (9-16) mg/dL Creatinine 0.69 (0.5-1.4) mg/dL Estim Creat Clear Calc 142.1 Estimated GFR > 60 Random Glucose 142 H (60-115) mg/dL Calcium 9.6 (8.4-10.2) mg/dL Magnesium 1.9 (1.6-2.6) mg/dL Total Bilirubin 0.4 (0.0-1.0) mg/dL AST 20 (5-31) U/L ALT 27 (0-31) U/L Alkaline Phosphatase 91 (39-117) U/L Total Protein 7.6 (6.5-8.0) g/dL Albumin 4.6 (3.5-5.0) g/dL Beta HCG, Quant < 2 mIU/mL Urine Color Yellow Urine Appearance Clear Urine pH 5.5 (5.0-9.0) Ur Specific [place] 1.025 (1.005-1.025) Urine Protein Negative (Neg-Trace) mg/dL Urine Glucose (UA) Negative (Negative) mg/dL Urine Ketones Negative (Negative) mg/dL Urine Blood Small (1+) H (Negative) Urine Nitrite Negative (Negative) Ur Leukocyte Esterase Trace H (Negative) Urine RBC 0-2 (0-2) /HPF Urine WBC 0-5 (0-5) /HPF Ur Squamous Epith Cells 0-2 (0-2) /HPF Urine Bacteria Trace (None Seen) Hyaline Casts 0-2 (0-2) /LPF Discharge Plan Discharge Clinical Impression: Migraine Patient Disposition: Home, Self-Care Instructions: Migraine Headache (ED) Additional Instructions: The CT scan of your brain was normal, you were treated for a migraine headache. See home care instructions. Continue to follow up with your primary care provider as needed. Prescriptions: No Action cephalexin 500 mg tablet 500 mg PO QID 7 Days Qty: 28 0RF metronidazole 500 mg tablet 500 mg PO BID Qty: 14 0RF valacyclovir 1 gram tablet 1,000 mg PO TID Qty: 21 0RF tramadol 50 mg tablet 50 mg PO Q6H MDD 200 PRN (Reason: pain) Qty: 12 0RF Stand Alone Forms: Work/School Release Interventions: ED Discharge Assessment Last Done: 12/18/24 02:21 Discharge Date/Time: 12/18/24 02:23 Print Language: Niuean
[2024-12-17 19:28] LABS: MANUAL DIFF FLAG NO
[2024-12-17 19:42] LABS: Alanine Aminotransferase 27 U/L (0-31); Albumin Level 4.6 g/dL (3.5-5.0); Alkaline Phosphatase 91 U/L (39-117); Anion Gap 15 (12-20); Aspartate Amino Transferase 20 U/L (5-31); Blood Urea Nitrogen 11 mg/dL (9-16); Calcium 9.6 mg/dL (8.4-10.2); Carbon Dioxide 24 mmol/L (22-29); Chloride 105 mmol/L (96-108); Creatinine Clr Calc Pharmacy 142.1; Estimated Glomerular Filt Rate > 60; Magnesium 1.9 mg/dL (1.6-2.6); Potassium 3.8 mmol/L (3.3-5.1); Sodium 140 mmol/L (135-145); Total Protein 7.6 g/dL (6.5-8.0)
[2024-12-17 19:53] LABS: Hematocrit 42.7 % (37.0-47.0); Hemoglobin 14.9 g/dl (12.0-16.0); Imm Gran Abs Auto 0.05 X10*3/uL (0.00-0.03); Imm Gran Pct Auto 0.4 % (0.0-0.4); Lymphocytes Absolute Auto 2.8 X10*3/uL (1.2-4.9); Mean Corpuscular HGB Conc 34.9 g/dl (31.0-35.0); Mean Corpuscular Hemoglobin 29.2 pg (27.0-33.0); Mean Corpuscular Volume 83.6 fL (80.0-98.0); NRBC Abs Auto 0.000 X10*3/uL (0.0-0.012); NRBC Pct Auto 0.0 /100WBC (0.0-0.2); Platelet Count 288 X10*3/uL (160-400); Red Blood Count 5.11 X10*6/uL (4.20-5.50); White Blood Count 12.1 X10*3/uL (4.8-10.8)
--- OUTSIDE RECORDS SUMMARY | 2024-12-17 22:55 | XMS_ITS | Clinical Summary ---
Author Organization [facility] Address [address] [place] [id number] Phone Care Team Providers Care Tuyere Fitter Name Role Phone Unavailable Primary Care Provider Unavailabl e Immunizations Immunization Administration Dates Next Due DTaP 06/13/2001, 8,1996, 997,1996 HPV, Quadrivalent 11/06/2013 Hep A, ped/adol 11/06/2013 Hep B, ped/adol 1996,1996 Hib (HbOC) 06/14/1997, 7,1996, 997 Influenza, intranasal, quadrivalent 01/31/2014,1 06/04/2012 Influenza, intranasal, trivalent 02/17/2012,08/2011,04/28/2010 MMR 06/13/2001,09/10/1997 Meningococcal Conj (Menactra) MCV4P 05/05/2010 OPV 06/14/1997, 7,1996, 997 Tdap 09/26/2008 Varicella 10/04/2011,06/14/1997 Family History Relation Name Status Comments Father Alive Father: Hyperte nsion, type 2 diabetes, Obesity,Anxiety Maternal Grandfather Materna l grandfather: heart attack age 45 Mother Alive Mother: kaylan garber Other Family history of Asthma, Family history of Cancer, breast, Family history of Allergies, Family history of Cancer, cervical, Family history of Hypertension, Family history of Hyperlipidemia, Family history of Eczema, Family history of Obesity, Family history of Diabetes mellitus, No family history of Stroke Social History Tobacco Use Types Packs/Day Years Used Date Smoking Tobacco: Never Comments:Never smoker Comments Unknown Sex and Gender Information Value Date Recorded Sex Assigned at Not on file Legal Sex Female 4:54 PM EDT Gender Identity Not on file Sexual Orientation Not on file Last Filed Vital Signs Vital Sign Reading Time Taken Comments Blood Pressure 117/78 02/25/2014 12:00 AM EDT Pulse 99 02/25/2014 12:00 AM EDT Temperature 37.1 C (98.8 F) 02/25/2014 12:00 AM EDT Respiratory Rate - - Oxygen Saturation - - Inhaled Oxygen Concentration - - Weight 86.2 kg (190 lb) 02/25/2014 12:00 AM EDT Height 152.9 cm (5' 0.2 ) 02/25/2014 12:00 AM ED T Body Mass Index 36.86 02/25/2014 12:00 AM EDT Plan of Treatment Health Maintenance Due Date Last Done Comments Hepatitis B Vaccines (3 of 3 - 3-dose series) 02/17/1997 1996, 1996 HPV Vaccines (2 - 3-dose series) 12/04/2013 11/06/2013 Hepatitis A Vaccines (2 of 2 - 2-dose series) 05/09/2014 11/06/2013 DTaP,Tdap,and Td Vaccines (7 - Td or Tdap) 09/26/2018 09/26/2008, 06/13/2001, 09/10/1997, Additional history exists COVID-19 Vaccine ( season) 2023 Influenza Vaccines (#1) 2024 02/01/20 14, 04/03/2013, 02/17/2012, Additional history exists HIB Vaccines Completed 06/14/1997, 10/30, 1996, Additional history exists IPV Vaccines Completed 06/14/1997, 10/30, 1996, Additional history exists MMR Vaccines Completed 06/13/2001, 09/10/1997 Meningococcal Vaccine Aged Out 05/05/2010 No jesse jp eligible based on patient's age to complete this topic Varicella Vaccines Completed 10/04/2011, 06/14/1997 Men B Vaccine Aged Out No longer elig ible based on patient's age to complete this topic Pneumococcal Vaccine Aged Out No long er eligible based on patient's age to complete this topic Procedures * Due to [place] state law, this organization might not be sharing sensitive test results. Procedure Name Priority Date/Time Associated Diagnosis Comments CHLAMYDIA AND GONORRHEA, AMPLIFIED Routine 02/03/2014 1:32 PM EDT from Last 3 Months or Most Recently Relevant to Health Maintenance Results * Due to [place] state law, this organization might not be sharing sensitive test results. * Chlamydia and Gonorrhoea, Amplified (02/03/2014 1:32 PM EDT) URINE CHLAMYDIA AMP PROBE NEGATIVE [facility] Comment: NO CHLAMYDIA TRACHOMATIS RNA DETECTED IN THIS PATIENT'S SAMPLE. (REFERENCE RANGE/NORMAL VALUE: NOT DETECTED) URINE GC AMP PROBE NEGATIVE [facility] Comment: NO NEISSERIA GONORRHOEAE RNA DETECTED IN THIS PATIENT'S SAMPLE. (REFERENCE RANGE/NORMAL VALUE: NOT DETECTED) NOTE: This test uses pad assembler-mediated amplification method to detect rRNA from C.Trachomatis and N.Gonorrhoeae. A negative result does not preclude infection. In the case of a negative urine result, testing of an endocervical(female) or urethral(male) specimen is recommended if there is high clinical suspicion of infection. The performance characteristics of this test have not been evaluated in children. The Aptima Combo2 assay is not intended for the evaluation of suspected sexual abuse or for other medico-legal indications. The ordering provider should assess if the patient had consensual sex without risk of sexual abuse. Consult the [facility] if needed. Contact phone number . Therapeutic failure or success cannot be determined with the Aptima Combo2 assay since nucleic acid may persist following appropriate antimicrobial therapy. The Centers for Disease Control and Prevention (CDC) recommends confirmatory retesting using culture or a different nucleic acid amplification test when positive results occur, if indicated. Testing performed or reported by [facility], a Service of [facility], [address] [place] [id number] Juan Dickey, Exhibit Specialist 02/03/2014 1:32 PM EDT Narrative [facility] - 02/03/2014 1:32 PM EDT URINE CHLAMYDIA GC AMP PROBE us Yuliya Casillas MD LAB MICROBIOLOGY - GENERAL ORDER YANET Final Result [facility] [address] [place] [id number], from Last 3 Months or Most Recently Relevant to Health Maintenance
--- OUTSIDE RECORDS SUMMARY | 2024-12-17 22:55 | XMS_ITS | Clinical Summary ---
Author Organization [facility] Address [address] [place] [address] Care Team Providers Care Asset Protection Associate Name Role Phone Selwyn Bill MD Primary Care Provider Allergies No known active allergies Medications norgestimate-eth inyl estradioL (ORTHO-CYCLEN) 0.25-35 mg-mcg per tablet Take 1 tablet by mouth 1 (one) time each day. Active fluticasone propionate (FLONASE) 50 mcg/actuation nasal spray Administer 1 spray into each nostril 1 (one) time each day. Shake gently. Before first use, prime pump. After use, clean tip and replace cap. 16 g 2 09/26/19 25 Active metFORMIN XR (GLUCOPHAGE-XR) 500 mg 24 hr tablet Take 1 tablet (500 mg total) by mouth 1 (one) time each day with breakfast. Do not crush, chew, or split. 90 each 1 09/26/19 25 026 Active clotrimazole (LOTRIMIN) 1 % cream Apply topically 2 (two) times a day. 30 g 2 09/28/19 25 Active betamethasone dipropionate (DIPROSONE) 0.05 % creamIndications :Psoriasis Apply thin layer to affected area BID for 2 weeks then stop. Avoid face and groin. 45 g 2 11/22/19 25 Active SUMAtriptan (IMITREX) 50 mg tablet Take 1 tablet (50 mg total) by mouth 1 (one) time if needed for migraine. May repeat dose once in 2 hours if no relief. Do not exceed 2 doses in 24 hours. 27 tablet 3 12/17/19 25 026 Active magnesium oxide (MAG-OX) 400 mg magnesium tablet Take 1 tablet (400 mg total) by mouth 1 (one) time each day. 90 tablet 12/17/19 25 Active riboflavin (VITAMIN B2) 400 mg tablet Take 1 tablet (400 mg total) by mouth 1 (one) time each day. 90 tablet 1 12/17/19 25 Active naproxen (EC NAPROSYN) 500 mg EC tablet Take 1 tablet (500 mg total) by mouth 2 (two) times a day if needed for headaches. Do not crush, chew, or split. 28 tablet 12/17/19 25 Active cyclobenzaprine (FLEXERIL) 5 mg tablet Take 1 tablet (5 mg total) by mouth at bedtime as needed for muscle spasms. 30 tablet 12/17/19 Active omeprazole (PriLOSEC) [address] capsule TAKE 1 CAPSULE BY MOUTH EVERY DAY 90 capsule 08/09/19 Discontinu ed(Therapy completed) betamethasone dipropionate (DIPROSONE) 0.05 % creamIndications :Psoriasis Apply thin layer to affected area BID for 2 weeks then stop. Avoid face and groin. 30 g 2 09/12/19 25 025 Discontinu ed(Reorder ) ergocalciferol (VITAMIN D-2) 1,250 mcg (50,000 unit) capsule Take 1 capsule (50,000 Units total) by mouth 1 (one) time per week. 4 capsule 2 09/12/19 25 busPIRone (BUSPAR) 5 mg tablet Take 1 tablet (5 mg total) by mouth 2 (two) times a day if needed (anxiety). 60 each 2 09/26/19 25 025 Discontinu ed(Therapy completed) ketoconazole 1 % shampoo Shampoo every other day, leave on for 5-10 minutes, then rinse. 120 mL 2 09/26/19 25 025 Discontinu ed(Reorder ) ketoconazole 1 % shampoo Shampoo every other day, leave on for 5-10 minutes, then rinse. 120 mL 2 11/22/19 25 025 Discontinu ed(Therapy completed) amoxicillin-clav ulanate (AUGMENTIN) 875-125 mg per tablet Take 1 tablet by mouth 2 (two) times a day for 7 days. 14 each 11/22/19 25 025 nitrofurantoin, macrocrystal-mon ohydrate, (MACROBID) 100 mg capsule Take 1 capsule (100 mg total) by mouth 2 (two) times a day for 7 days. 14 each 11/23/19 25 025 Active Problems Problem Noted Date Diagnosed Date Morbid obesity with BMI of 5 0.0-59.9, adult ([facility] V24, [facility] V28) 02/21/2024 Fatty liver 09/24/2021 Panic attacks 09/24/2021 Elevated LFTs 02/21/2019 Recurrent major depressive disorder ([facility] V24 ) 07/19/2018 Anxiety and depression 03/05/2014 Overview (02/21/2024): Counseling and psychiatric (Dr Holland) at [facility] 07/13 - On Prozac 30 qd, 06/2018 Sees therapist at [facility] 1-2 times per month Winifred is prescriber, sees her every 8 weeks Encounters Date Type Department Care Team Description 12/16/2024 1:00 PM EDT Office Visit Adult [address] [phone] Sarah Mei PA Migraine without aura and without status migrainosus, not intractable (Primary Dx); Neck pain; Anxiety and depression 12/16/2024 Telephone Adult Medicine [address] [phone] Selwyn Bill MD Migraine 11/21/2024 1:00 PM EDT Office Visit Adult [address] [phone] Sarah Mei PA Urinary frequency (Primary Dx); Prediabetes; Psoriasis; Morbid obesity with BMI of 50.0-59.9, adult ([facility] V24, [facility] V28); Seborrheic dermatitis of scalp 11/21/2024 Telephone Adult Medicine [address] [phone] Selwyn Bill MD Urinary Frequency 09/25/2024 1:45 PM EDT Office Visit [address] [phone] Selwyn Bill MD Seasonal allergies (Primary Dx); Seborrheic dermatitis of scalp; Psoriasis; Anxiety disorder, unspecified type; Callus of foot; Prediabetes 09/20/2024 Telephone Adult [address] [phone] Selwyn Bill MD Appointment from Last 3 Months Surgical History Surgery Date Site/Laterality Comments OTHER SURGICAL HISTORY PROCEDURE: DENIES PREVIOUS SURGERY Medical History Medical History Date Comments Anxiety DX:Anxiety; COMM ENT: counseling and psychiatric (Dr Holland) at [facility] Chlamydia DX:Chlamydia; CO MMENT: 04/13; 06/15 Fatty liver DX:Fatty liver Family History Medical History Relation Name Comments Diabetes Father Heart attack Maternal Grandfather Other: Other Mother fibromyalgia, A nk Spond Thyroid disease Mother Breast cancer Mother's side great grandmo ther and great aunt, unilateral Colon cancer Neg Hx Ovarian cancer Neg Hx Relation Name Status Comments Father Maternal Grandfather Mother Mother's side Social History Tobacco Use Types Packs/Day Years Used Date Smoking Tobacco: Never Smokeless Tobacco: Never Tobacco Cessation:Counseling Given: Not Answered Alcohol Use Standard Drinks/Week Comments No 0 (1 standard drink = 0.6 oz pur e alcohol) Comments No Sex and Gender Information Value Date Recorded Sex Assigned at Not on file Legal Sex Female 8:49 AM EST Gender Identity Not on file Sexual Orientation Not on file Obstetrics History Last Filed Vital Signs Vital Sign Reading Time Taken Comments Blood Pressure 130/88 12/16/2024 4:29 PM EDT Pulse 97 12/16/2024 1:04 PM EDT Temperature 36.6 C (97.9 F) 12/16/2024 1:04 PM EDT Respiratory Rate 18 12/16/2024 1:04 PM EDT Oxygen Saturation 98% 09/25/2024 2:00 PM EDT Inhaled Oxygen Concentration - - Weight 121 kg (266 lb) 12/16/2024 1:04 PM EDT Height 149.9 cm (4' 11 ) 12/16/2024 1:04 PM EDT Body Mass Index 53.73 12/16/2024 1:04 PM EDT Plan of Treatment Upcoming Encounters Date Type Department Care Team (Late st Contact Info) Description 03/03/2025 9:30 AM EST Consult Orthopedic Surgery - [place] [id number] [phone] Galen Cisse DPM [address] [id number] 04/14/2025 11:00 AM EST Consult [facility] [place] - [place] 175 [facility] [address] [place] [phone] Alex Arreaga MD [address] [phone] Health Maintenance Due Date Last Done Comments Hepatitis A Vaccines (2 of 2 - 2-dose series) 05/09/2014 11/06/2013 Pneumococcal Vaccine: Pediatrics (0 to 5 Years) and At-Risk Patients (6 to 49 Years) (1 of 2 - PCV) 2015 Cervical Cancer Screening: Pap Smear 2017 DTaP,Tdap,and Td Vaccines (7 - Td or Tdap) 09/26/2018 09/26/2008, 06/13/2001, 09/10/1997, Additional history exists Cholesterol Screening (Lipid Panel) 04/03/2022 HIV Screening 04/03/2022 Hepatitis C Screening 04/03/2022 Social Influencers of Health Screening 04/03/2022 COVID-19 Vaccine ( season) 2023 Depression Screening 05/01/2024 Influenza Vaccine (#1) 2024 9, 02/10/2017, 01/31/2014, Additional history exists HIB Vaccines Completed 06/14/1997, 06/01, 1996, Additional history exists IPV Vaccines Completed 06/14/1997, 06/01, 1996, Additional history exists Meningococcal ACWY Vaccine Aged Out 05/05/2010 N o longer eligible based on patient's age to complete this topic Varicella Vaccines Completed 10/04/2011, 06/14/1997 HPV Vaccines Completed 04/14/2016, 11/08/2013, 11/06/2013 MMR Vaccines Completed 09/07/2016, 06/01, 09/10/1997 Hepatitis B Vaccines Completed 10/12/2016, 09/07/2016, 1996, Additional history exists Meningococcal B Vaccine Aged Out No l onger eligible based on patient's age to complete this topic RSV Immunization Patients Under 20 months Aged Out No longer eligible based on patient's age to complete this topic Procedures Procedure Name Priority Date/Time Associated Diagnosis Comments POC URINE AUTO W/O MICRO Routine 11/21/2024 1:03 PM EDT Urinary frequency from Last 3 Months Results * (ABNORMAL) POC Urine Auto W/O Micro (11/21/2024 1:03 PM EDT) Leukocytes UA POC Negative Negative Nitrite UA POC Negative Negative Urobilinogen UA POC Negative Negative Protein UA POC Positive(A) Negative PH UA POC 6.0 5.0 - 9.0 Blood UA POC Negative Negative, Trace Specific [place] UA POC 1.020 1.001 - 1.035 Ketones UA POC Negative Negative Bilirubin UA POC Negative Negative Glucose UA POC Normal Normal, Trace Color UA POC Yellow Urine Urine specimen obtained by clean catch procedure / Unknown 11/21/2024 1:03 PM EDT Sarah Ina Sebastián CADENA POINT OF CARE TEST ENTER /EDIT ORDERABLES Final Result from Last 3 Months Insurance [facility] Care Teams Asset Protection Associate Relationship Specialty Start Date End Date Selwyn Bill MD [address] [place] [address] PCP - General Internal Medicine 08/17/21
[2024-12-17 23:51] LABS: Appearance Urine Clear; Glucose Urine UA Negative (Negative); PH 5.5 (5.0-9.0); Specific Gravity - Urine 1.025 (1.005-1.025); UMIC TRIGGER UACC YES
[2024-12-18] MEDS: diazePAM 10 MG/2 ML CARTRIDGE 2.5 MG IVPUSH (00:03)
[2024-12-18 02:21] VITALS: BP 129/87; PULSE 99; RESP 20; TEMP 36.4; O2SAT 96
== END 2024-12-18 02:23 | disposition home or self-care (01) ==
PROVIDERS: Physician Assistant Medical; Emergency Provider Emergency Medicine; PCP Internal Medicine
DX: G43.909 Migraine, unspecified, not intractable, without status migrainosus (principal); F41.9 Anxiety disorder, unspecified; M54.2 Cervicalgia
CPT/HCPCS: 36415; 70450; 80053; 81001; 83735; 84702; 85025; 96361; 96374; 96375; 99284; J0737; J1100; J1200; J1885; J3360

== ENCOUNTER → 2024-12-17 19:17 | Outpatient (BNV) | payer BC, OTHER, SELFPAY | PROVIDERS: PCP Internal Medicine; Visit Provider Radiology Neuroradiology | DX: R51.9 Headache, unspecified (principal) | CPT/HCPCS: 70450 ==